=== PATIENT | female | born 1945 | race Caucasian/White ===

== ENCOUNTER 2016-04-10 09:07 | Outpatient (RCR) | payer MEDICAID ==
[~2016-04-10 09:07] MED LIST: ACYC400T21 PO; ALBU17AE23 IH; ALBU8.5H2 IH; ASP81CT PO; ATOR10TA PO; ATRV10T PO; BISA-65 PO; BISA5TAB8 PO; CEPH500C PO; DOCU-143 PO; DOCU100T7 PO; GABA-488 PO; GABA300C PO; HYDR-34 PO; HYDR1CAP2 PO; IBUP-792 PO; LISI20TA PO; LISI5TAB PO; LNS30CCR PO; MAGN400O7 PO; MELO7.5T PO; MORP15TA97 PO; MORP30CP12 PO; OMEP40CA36 PO; ONDA8TAB6 PO; POLI10TA; POLY119P PO; PSYL1PAC15 PO; [UNRECOGNIZED DRUG - CODE] PO
[2016-04-10 09:34] LABS: BASOPHILS % (AUTO) 1 % (0-10); EOSINOPHILS % (AUTO) 0 % (0-10); LYMPHOCYTES # (AUTO) 1.2 X 10^3 (1.0-4.0); LYMPHOCYTES % (AUTO) 35 % (12-44); MEAN CORPUSCULAR HEMOGLOBIN 22 PG (25-34); MEAN CORPUSCULAR HGB CONC 29 G/DL (32-36); MEAN CORPUSCULAR VOLUME 78 FL (80-99); MEAN PLATELET VOLUME 9.2 FL (7.4-10.4); MONOCYTES # (AUTO) 0.7 X 10^3 (0.0-1.0); MONOCYTES % (AUTO) 20 % (0-12); NEUTROPHILS # (AUTO) 1.6 X 10^3 (1.8-7.8); NEUTROPHILS % (AUTO) 44 % (42-75); PLATELET COUNT 161 10^3/uL (130-400); RED BLOOD COUNT 2.68 10^6/uL (4.35-5.85); RED CELL DISTRIBUTION WIDTH 22.6 % (10.0-14.5); WHITE BLOOD COUNT 3.6 10^3/uL (4.3-11.0)
[2016-04-10 10:05] LABS: ALANINE AMINOTRANSFERASE 7 U/L (0-55); ALBUMIN 3.3 G/DL (3.2-4.5); ANION GAP 9 MMOL/L (5-14); ASPARTATE AMINO TRANSFERASE 18 U/L (5-34); BILIRUBIN,TOTAL 0.2 MG/DL (0.1-1.0); BLOOD UREA NITROGEN 8 MG/DL (7-18); BUN/CREATININE RATIO 13; CALCIUM 8.5 MG/DL (8.5-10.1); CARBON DIOXIDE 23 MMOL/L (21-32); CHLORIDE 100 MMOL/L (98-107); CREATININE SERUM 0.64 MG/DL (0.60-1.30); GFR ESTIMATED > 60; GLUCOSE 103 MG/DL (70-105); POTASSIUM 4.2 MMOL/L (3.6-5.0); SODIUM 132 MMOL/L (135-145); TOTAL PROTEIN 6.1 G/DL (6.4-8.2)
== END 2016-05-09 | disposition home or self-care (01) ==
LOC: ONC 09:07
PROVIDERS: ATTEND Internal Medicine Hematology & Oncology
DX: C18.7 Malignant neoplasm of sigmoid colon (principal); C78.2 Secondary malignant neoplasm of pleura; C77.2 Secondary and unspecified malignant neoplasm of intra-abdominal lymph nodes; C78.6 Secondary malignant neoplasm of retroperitoneum and peritoneum; D69.59 Other secondary thrombocytopenia; F17.210 Nicotine dependence, cigarettes, uncomplicated; I73.9 Peripheral vascular disease, unspecified; L97.909 Non-pressure chronic ulcer of unspecified part of unspecified lower leg with unspecified severity; J44.9 Chronic obstructive pulmonary disease, unspecified; Z79.899 Other long term (current) drug therapy
CPT/HCPCS: 36591; 80053; 82378; 85025

== ENCOUNTER 2016-05-05 16:14 | Inpatient (IN) | payer MEDICAID ==
[~2016-05-05] VITALS: Ht 167.6 cm; Wt 49.4 kg
[2016-05-05] MEDS ORDERED: LORazepam INJ 2 MG/ML (ATIVAN) VIAL ONE (16:52)
--- NOTE | 2016-05-05 16:54 | ED General ---
General Chief Complaint: Fever-Adult/Adol Stated Complaint: SOA Nursing Triage Note: PT BROUGHT IN BY [facility] WITH C/O FEVER AND SOA. PT HAS STAGE 4 COLON CA. Nursing Sepsis Screen: Possible Sepsis Risk Source of Information: Patient, EMS Exam Limitations: Other (dementia) History of Present Illness Time Seen by Provider: 16:40 Initial Comments 70 year-old female patient presents to the emergency department via [facility] with complaints of fever and shortness of air. Patient has known stage IV colon cancer and sees Dr. Wetzel. No family or caregivers present with the patient. Patient unable to provide history. Timing/Duration: Other (chronic shortness of air, worsening over the last 1-2 days.) Modifying Factors: worse with Other (worse with activity) Allergies and Home Medications Allergies Coded Allergies: NKANo Known Allergies (Verified Allergy, Mild, 04/13/10) Home Medications Albuterol 8.5 Gm Hfa.aer.ad 2 PUFF IH Q4H PRN PRN SHORTNESS OF BREATH (Reported ) Atorvastatin Calcium 10 Mg Tablet #30 10 MG PO DAILY Prescribed by: LAURA JENKINS on 06/29/15 1112 Bisacodyl 5 Mg Tablet.dr 5 MG PO DAILY PRN PRN CONSTIPATION (Reported) Docusate Sodium 100 Mg Capsule 200 MG PO DAILY (Reported) TAKES 2 (100MG) CAPSULES Gabapentin 300 Mg Capsule 300 MG PO TID PRN PRN PAIN (Reported) Hydrocodone Bit/Acetaminophen 1 Ea Tablet 1.5 TAB PO Q4H PRN PRN PAIN (Reported ) Lisinopril 20 Mg Tablet 20 MG PO DAILY (Reported) Magnesium Hydroxide 400 Mg/5 Ml Oral.susp 30 ML PO DAILY PRN PRN CONSTIPATION ( Reported) Morphine Sulfate 30 Mg Cpmp.24hr 30 MG PO BID (Reported) Omeprazole 40 Mg Capsule.dr 40 MG PO DAILY (Reported) Ondansetron HCl 8 Mg Tablet 8 MG PO Q8H PRN PRN NAUSEA (Reported) Constitutional: see HPI fever malaise EENTM: no symptoms reported Respiratory: see HPI Gastrointestinal: No diarrhea, loss of appetiteNo vomiting Other Patient unable to provide ROS due to dementia. ROS per EMS. Past Xdpyjse-Mwnlcq-Ulbpzy Hx Patient Social History Alcohol Use: Denies Use Recreational Drug Use: No Smoking Status: Current Everyday Smoker Recent Foreign Travel: No Contact w/Someone Who Travel: No Recent Infectious Disease Expo: No Recent Hopitalizations: No Physical Abuse Screen: No Sexual Abuse: No Surgeries HX Surgeries: Yes (COLONOSCOPY, COLON RESECTION, KYPHOPLASTY) Surgeries: Abdominal, Orthopedic Respiratory Hx Respiratory Disorders: Yes (colon cancer with mets to the lungs.) Respiratory Disorders: COPD Cardiovascular Hx Cardiac Disorders: Yes Cardiac Disorders: Hypertension Neurological Hx Neurological Disorders: Yes Neurological Disorders: Dementia Reproductive System Hx Reproductive Disorders: No Genitourinary Hx Genitourinary Disorders: No Genitourinary Disorders: Bladder Infection Gastrointestinal Hx Gastrointestinal Disorders: No Gastrointestinal Disorders: Gastroesophageal Reflux, Chronic Constipation Musculoskeletal Hx Musculoskeletal Disorders: Yes (COMPRESSION FX'S--S/P KYPHOPLASTY) Musculoskeletal Disorders: Arthritis, Chronic Back Pain, Fractures Endocrine Hx Endocrine Disorders: No HEENT HX ENT Disorders: No Cancer Hx Cancer: Yes (COLON CA/LUNG METS-STATES CURRENTLY RECEIVING CHEMOTHERAPY) Cancer: Colon Psychosocial Hx Psychiatric Problems: Yes Behavioral Health Disorders: Anxiety, Depression Integumentary HX Skin/Integumentary Disorder: No Blood Transfusions Hx Blood Disorders: Yes (ANEMIA) Reviewed Nursing Assessment Reviewed/Agree w Nursing PMH: Yes Family Medical History Significant Family History: No Pertinent Family Hx Physical Exam-Suspected Sepsis Physical Exam Vital Signs Vital Sign - Last 12Hours 05/05/16 05/05/16 16:25 16:35 Temp 100.4 Pulse 111 Resp 30 B/P 106/72 Pulse Ox 100 O2 Delivery Nasal Cannula O2 Flow Rate 3 Capillary Refill : Less Than 3 Seconds Blood Pressure Mean: 83 General Appearance: Anxious Chronically ill Mild Distress HEENT: PERRL/EOMI Pharynx Normal Neck: Normal Inspection Non Tender Respiratory: Crackles Decreased Breath Sounds Expiration Respiratory Distress Rhonci Cardiovascular: No Murmur Tachycardia Gastrointestinal: Normal Bowel Sounds Non Tender SoftNo Distended Extremity: Non Tender Pedal Edema (1+ pedal edema.) Other (pressure ulcers of the rt dorsum foot with eschar. no evidence of erythema. slight serous drainage.) Neurologic/Psychiatric: Alert Disoriented x3 Other (anxious and agitated. ) Skin: normal color warm/dry ulcerations (pressure ulcers of the rt dorsum foot with eschar. no evidence of erythema. slight serous drainage.) Progress/Results/Core Measures Suspected Sepsis Recent Fever Within 48 Hours: Yes Infection Criteria Present: Suspected New Infection New/Unexplained Altered Menta: No Sepsis Screen: Possible Sepsis Risk Sepsis Diagnosis: SIRS Temperature:100.4 Pulse: 111 Respiratory Rate: 30 Laboratory Tests 05/05/16 16:25: White Blood Count 10.9 Blood Pressure 106 /72 Mean: 83 Laboratory Tests 05/05/16 16:25: Creatinine 0.64, INR Comment 1.0, Platelet Count 163, Total Bilirubin 0.6 Results/Orders Lab Results Laboratory Tests Test 05/05/16 16:25 Range/Units Activated Partial Thromboplast Time 35 24-35 SEC Alanine Aminotransferase (ALT/SGPT) 15 0-55 U/L Albumin 3.4 3.2-4.5 G/DL Alkaline Phosphatase 85 40-136 U/L Anion Gap 11 5-14 MMOL/L Aspartate Amino Transf (AST/SGOT) 28 5-34 U/L BUN/Creatinine Ratio 14 Basophils # (Auto) 0.0 0.0-0.1 10^3/uL Basophils (%) (Auto) 0 0-10 % Blood Urea Nitrogen 9 7-18 MG/DL Calcium Level 8.6 8.5-10.1 MG/DL Carbon Dioxide Level 21 21-32 MMOL/L Chloride Level 98 98-107 MMOL/L Creatinine 0.64 0.60-1.30 MG/DL Eosinophils # (Auto) 0.0 0.0-0.3 10^3/uL Eosinophils (%) (Auto) 0 0-10 % Estimat Glomerular Filtration Rate > 60 Glucose Level 98 70-105 MG/DL Hematocrit 21 L 35-52 % Hemoglobin 5.9 *L 11.5-16.0 G/DL INR Comment 1.0 0.8-1.4 Lactic Acid Level 1.6 0.5-2.0 MMOL/L Lymphocytes # (Auto) 0.5 L 1.0-4.0 X 10^3 Lymphocytes (%) (Auto) 5 L 12-44 % Mean Corpuscular Hemoglobin 22 L 25-34 PG Mean Corpuscular Hemoglobin Concent 29 L 32-36 G/DL Mean Corpuscular Volume 76 L 80-99 FL Mean Platelet Volume 9.5 7.4-10.4 FL Monocytes # (Auto) 1.0 0.0-1.0 X 10^3 Monocytes (%) (Auto) 9 0-12 % Neutrophils # (Auto) 9.4 H 1.8-7.8 X 10^3 Neutrophils (%) (Auto) 86 H 42-75 % Platelet Count 163 130-400 10^3/uL Potassium Level 5.0 3.6-5.0 MMOL/L Prothrombin Time 13.2 12.2-14.7 SEC Red Blood Count 2.70 L 4.35-5.85 10^6/uL Red Cell Distribution Width 21.7 H 10.0-14.5 % Sodium Level 130 L 135-145 MMOL/L Total Bilirubin 0.6 0.1-1.0 MG/DL Total Protein 6.4 6.4-8.2 G/DL Troponin I < 0.30 <0.30 NG/ML White Blood Count 10.9 4.3-11.0 10^3/uL My Orders Orders-[facility] Cbc With Automated Diff (05/05/16 16:51) Comprehensive Metabolic Panel (05/05/16 16:51) Lactic Acid Analyzer (05/05/16 16:51) Blood Culture (05/05/16 16:51) Sputum Culture (05/05/16 16:51) Ua Culture If Indicated (05/05/16 16:51) Protime With Inr (05/05/16 16:51) Partial Thromboplastin Time (05/05/16 16:51) Chest 1 View, Ap/Pa Only (05/05/16 16:51) O2 (05/05/16 16:51) Acetaminophen Tablet (Tylenol Tablet) (05/05/16 17:00) Saline Lock/Iv-Start (05/05/16 16:51) Ekg Tracing (05/05/16 16:51) Troponin I (05/05/16 16:51) Ns Iv 1000 Ml (Sodium Chloride 0.9%) (05/05/16 17:00) Levofloxacin 750 Mg/150 Ml Iv (Levaquin (05/05/16 17:00) Vital Signs Adult Sepsis Patie Q1HR (05/05/16 16:51) Lorazepam Injection (Ativan Injection) (05/05/16 16:52) Albuterol/Ipra Inhalation Soln (Duoneb I (05/05/16 17:45) Svn Sm Volume Nebulizer Rt-Rfs (05/05/16 17:42) Albuterol/Ipra Inhalation Soln (Duoneb I (05/05/16 18:15) Svn Sm Volume Nebulizer Rt-Rfs (05/05/16 18:09) Ns Iv 1000 Ml (Sodium Chloride 0.9%) (05/05/16 19:28) Wound Culture (05/05/16 20:00) Medications Given in ED Current Medications Medications Dose Ordered Sig/Alexandre Route Start Time Stop Time Status Last Admin Dose Admin Albuterol/ Ipratropium 3 ml ONCE ONCE INH 05/05/16 17:45 05/05/16 17:46 DC 05/05/16 17:59 3 ML Albuterol/ Ipratropium 3 ml ONCE ONCE INH 05/05/16 18:15 05/05/16 18:16 DC 05/05/16 18:10 3 ML Levofloxacin/ Dextrose 750 mg ONCE ONCE IV 05/05/16 17:00 05/05/16 17:01 DC 05/05/16 18:19 750 MG Lorazepam 2 mg STK-MED ONCE .ROUTE 05/05/16 16:52 05/05/16 16:59 DC 05/05/16 17:10 1 MG Sodium Chloride 1,500 ml @ 750 mls/hr PRN PRN IV 05/05/16 17:00 05/05/16 17:10 750 MLS/HR Vital Signs/I&O Vital Sign - Last 12Hours 05/05/16 05/05/16 05/05/16 05/05/16 16:25 16:35 18:00 18:10 Temp 100.4 Pulse 111 Resp 30 B/P 106/72 Pulse Ox 100 96 100 100 O2 Delivery Nasal Cannula Nasal Cannula Nasal Cannula Nasal Cannula O2 Flow Rate 3 3 3 3 05/05/16 05/05/16 05/05/16 05/05/16 19:35 21:10 22:26 23:43 Temp 100.9 Pulse 125 Resp 35 Pulse Ox 100 100 98 O2 Delivery Nasal Cannula Nasal Cannula Nasal Cannula O2 Flow Rate 3 4.00 3.00 Intake and Output 05/06/16 00:00 Intake Total 1000 ml Balance 1000 ml Capillary Refill : Less Than 3 Seconds Blood Pressure Mean: 83 ECG Initial ECG Impression Date: May 05, 2016 Initial ECG Impression Time: 17:16 Initial ECG Rate: 127 Initial ECG Rhythm: S.Tach Initial ECG Comparisson: Unchanged Comment Sinus tachycardia. No changes from previous ECG. ECG reviewed by Dr. Nascimento. Diagnostic Imaging Diagonstic Imaging: Xray Plain Films/CT/US/NM/MRI: chest Comments FINDINGS: Heart size is within normal limits and stable when compared to . The previous exam did note nodular densities in the left lung base and in the right perihilar region. These are felt to be secondary to metastatic disease related to the patient's diagnosis of colon carcinoma. The CT chest exam performed on 07/07/15 also confirmed there were neoplastic masses in this regions. On this exam, the nodular density in the left lung base does seem somewhat more conspicuous. The density about the right hilum is not well visualized but the right hilum, itself, seems more prominent than on the prior exam and I suspect that there is neoplastic involvement of the right hilum. The other pulmonary nodules seen on the CT chest exam are not well appreciated on this study. The central pulmonary vascularity is somewhat prominent but there is no sign of overt failure. There is no evidence for pneumonia either. The mediastinum is not widened. The osseous structures are intact. The left-sided Port-A-Cath, seen previously, is again evident and no different. IMPRESSION: 1. There is no acute cardiopulmonary abnormality identified. 2. The suspected metastatic lesions involving the left lung base are more prominent on this study. The right hilum also appears to have increased in size somewhat and this area may also be involved by neoplasm. If further study is desired, then repeat CT chest exam would be recommended. Dictated by: Dictated on workstation # [id number] Reviewed: Reviewed by Me (radiology report reviewed by me) Departure Communication Time/Spoke to Admitting Phy: 19:40 Communication Patient case discussed with Dr. Alexis, he accepts patient to his internal medicine service for IV antibiotics and further evaluation. Progress Notes Daughter arrives to the emergency department. Reports patient has chronic shortness of air with worsening symptoms of the last several days. Was seen earlier this week by Soo Chambers APRN with plans made for possible transfusion due to chronic anemia. Reports patient has chronic dementia, but increased hallucinations over the last several days. Daughter reports morphine was increased to 100 mg from 90 mg. Daughter is concerned this has caused increased confusion. Daughter also reports Soo discussed need for hospice, but states patient refused hospice at the time of discussion. All laboratory findings, diagnostic study findings, and plan for admission discussed with the patient's daughter. Daughter voices understanding and agrees with the treatment plan. Patient does show improved breath sounds bilaterally with continued rhonchi and crackles. Patient case discussed with Dr. Nascimento, he agrees with the plan of care. Impression Impression: Primary Impression: Sepsis Qualified Code: A41.9 - Sepsis, unspecified organism Additional Impressions: Colon carcinoma metastatic to lung Anemia Disposition: ADMITTED INPATIENT Condition: Stable Decision to Admit Reason: Admit from ER (General) Decision to Admit/Date: May 05, 2016 Time/Decision to Admit Time: 19:20 Departure-Patient Inst. Referrals: SOURAV ALEXIS MD (PCP/Family) Primary Care Physician [facility] May 05, 2016 16:54
[2016-05-05 17:00] LABS: BASOPHILS % (AUTO) 0 % (0-10); EOSINOPHILS % (AUTO) 0 % (0-10); LYMPHOCYTES # (AUTO) 0.5 X 10^3 (1.0-4.0); LYMPHOCYTES % (AUTO) 5 % (12-44); MEAN CORPUSCULAR HEMOGLOBIN 22 PG (25-34); MEAN CORPUSCULAR HGB CONC 29 G/DL (32-36); MEAN CORPUSCULAR VOLUME 76 FL (80-99); MEAN PLATELET VOLUME 9.5 FL (7.4-10.4); MONOCYTES % (AUTO) 9 % (0-12); NEUTROPHILS # (AUTO) 9.4 X 10^3 (1.8-7.8); NEUTROPHILS % (AUTO) 86 % (42-75); PLATELET COUNT 163 10^3/uL (130-400); RED CELL DISTRIBUTION WIDTH 21.7 % (10.0-14.5); WHITE BLOOD COUNT 10.9 10^3/uL (4.3-11.0)
[2016-05-05] MEDS ORDERED: LEVOFLOXACIN IV 750 MG/150 ML (LEVAQUIN) BAG IV ONE (17:00)
[2016-05-05] MEDS ORDERED: ACETAMINOPHEN 500 MG TAB (TYLENOL) PO PRN (17:00)
[2016-05-05] MEDS ORDERED: NS IV 1000 ML 1,500 ML IV PRN (17:00)
[2016-05-05 17:03] LABS: PROTHROMBIN TIME PATIENT 13.2 SEC (12.2-14.7)
[2016-05-05 17:13] LABS: ALANINE AMINOTRANSFERASE 15 U/L (0-55); ALBUMIN 3.4 G/DL (3.2-4.5); ANION GAP 11 MMOL/L (5-14); ASPARTATE AMINO TRANSFERASE 28 U/L (5-34); BILIRUBIN,TOTAL 0.6 MG/DL (0.1-1.0); BLOOD UREA NITROGEN 9 MG/DL (7-18); BUN/CREATININE RATIO 14; CALCIUM 8.6 MG/DL (8.5-10.1); CARBON DIOXIDE 21 MMOL/L (21-32); CHLORIDE 98 MMOL/L (98-107); CREATININE SERUM 0.64 MG/DL (0.60-1.30); GFR ESTIMATED > 60; GLUCOSE 98 MG/DL (70-105); SODIUM 130 MMOL/L (135-145); TOTAL PROTEIN 6.4 G/DL (6.4-8.2)
[2016-05-05 17:19] LABS: TROPONIN I < 0.30 NG/ML (<0.30)
[2016-05-05] MEDS ORDERED: RT-ALBUTEROL/IPRATROPIUM 3 ML (DUONEB) VIAL INH ONE ×2 (17:45→18:15)
--- NOTE | 2016-05-05 18:04 | Diagnostic Imaging Report ---
INDICATION: Colon cancer. EXAMINATION: Portable erect AP chest at 5:18 p.m. FINDINGS: Heart size is within normal limits and stable when compared to 06/29/15. The previous exam did note nodular densities in the left lung base and in the right perihilar region. These are felt to be secondary to metastatic disease related to the patient's diagnosis of colon carcinoma. The CT chest exam performed on 07/07/15 also confirmed there were neoplastic masses in this regions. On this exam, the nodular density in the left lung base does seem somewhat more conspicuous. The density about the right hilum is not well visualized but the right hilum, itself, seems more prominent than on the prior exam and I suspect that there is neoplastic involvement of the right hilum. The other pulmonary nodules seen on the CT chest exam are not well appreciated on this study. The central pulmonary vascularity is somewhat prominent but there is no sign of overt failure. There is no evidence for pneumonia either. The mediastinum is not widened. The osseous structures are intact. The left-sided Port-A-Cath, seen previously, is again evident and no different. IMPRESSION: 1. There is no acute cardiopulmonary abnormality identified. 2. The suspected metastatic lesions involving the left lung base are more prominent on this study. The right hilum also appears to have increased in size somewhat and this area may also be involved by neoplasm. If further study is desired, then repeat CT chest exam would be recommended. Dictated by: Dictated on workstation # [id number]
[2016-05-05] MEDS ORDERED: NS IV 1000 ML 1,000 ML IV ONE (19:28)
[2016-05-05 19:50] VITALS: BP 70/40
[2016-05-05] MEDS ORDERED: morphine INJ 4 MG/ML 1 ML (VIAL/SYRINGE) IV PRN (20:15)
[2016-05-05] MEDS ORDERED: ONDANSETRON 4 MG/2 ML (SDV) Z0FRAN IV PRN (20:15)
[2016-05-05] MEDS ORDERED: cefTRIAXone 1 GM/NS 50 ML IVPB IV SCH ×2 (20:15)
[2016-05-05] MEDS ORDERED: ACETAMINOPHEN 650 MG SUPP (TYLENOL) PR PRN (20:15)
[2016-05-05] MEDS ORDERED: morphine INJ 4 MG/ML 1 ML (VIAL/SYRINGE) IVP PRN (20:30)
[2016-05-05] MEDS ORDERED: ACETAMINOPHEN 325 MG SUPP (TYLENOL) PR PRN (20:30)
[2016-05-05] MEDS: SCOPOLAMINE 1.5 MG (TRANSDERM-SCOP) PATCH TOP SCH (20:49)
[2016-05-05] MEDS: NS IV 1000 ML 1,000 ML IV SCH (20:49)
[2016-05-05] MEDS ORDERED: morphine INJ 5 MG/ML 1 ML VIAL IVP ONE (21:00)
[2016-05-05] MEDS ORDERED: morphine INJ 10 MG/ML 1ML (SYR OR VIAL) ONE (21:24)
[2016-05-05] MEDS ORDERED: RT-ALBUTEROL/IPRATROPIUM 3 ML (DUONEB) VIAL INH PRN (21:45)
[2016-05-05] MEDS: RT-ALBUTEROL/IPRATROPIUM 3 ML (DUONEB) VIAL INH SCH (22:25)
[2016-05-05] MEDS: LORazepam INJ 2 MG/ML (ATIVAN) VIAL IV PRN (23:14)
[2016-05-06] VITALS: BP 92/55
[2016-05-06] MEDS: RT-ALBUTEROL/IPRATROPIUM 3 ML (DUONEB) VIAL INH SCH ×4 (02:26→14:00)
[2016-05-06] MEDS: morphine INJ 4 MG/ML 1 ML (VIAL/SYRINGE) IVP PRN ×4 (02:30→13:47)
[2016-05-06 04:00] VITALS: BP 94/62
[2016-05-06] MEDS: LORazepam INJ 2 MG/ML (ATIVAN) VIAL IV PRN (05:31)
[2016-05-06] MEDS: NS IV 1000 ML 1,000 ML IV SCH ×2 (06:15→08:10)
[2016-05-06 06:29] LABS: BASOPHILS % (AUTO) 0 % (0-10); EOSINOPHILS % (AUTO) 0 % (0-10); LYMPHOCYTES # (AUTO) 0.6 X 10^3 (1.0-4.0); LYMPHOCYTES % (AUTO) 11 % (12-44); MEAN CORPUSCULAR HEMOGLOBIN 22 PG (25-34); MEAN CORPUSCULAR HGB CONC 28 G/DL (32-36); MEAN CORPUSCULAR VOLUME 77 FL (80-99); MEAN PLATELET VOLUME 9.2 FL (7.4-10.4); MONOCYTES # (AUTO) 0.9 X 10^3 (0.0-1.0); MONOCYTES % (AUTO) 17 % (0-12); NEUTROPHILS # (AUTO) 3.8 X 10^3 (1.8-7.8); NEUTROPHILS % (AUTO) 72 % (42-75); PLATELET COUNT 129 10^3/uL (130-400); RED BLOOD COUNT 2.23 10^6/uL (4.35-5.85); RED CELL DISTRIBUTION WIDTH 21.2 % (10.0-14.5); WHITE BLOOD COUNT 5.2 10^3/uL (4.3-11.0)
[2016-05-06 06:48] LABS: ALANINE AMINOTRANSFERASE 18 U/L (0-55); ALBUMIN 2.9 G/DL (3.2-4.5); ANION GAP 10 MMOL/L (5-14); ASPARTATE AMINO TRANSFERASE 59 U/L (5-34); BILIRUBIN,TOTAL 0.3 MG/DL (0.1-1.0); BLOOD UREA NITROGEN 8 MG/DL (7-18); BUN/CREATININE RATIO 14; CALCIUM 8.2 MG/DL (8.5-10.1); CARBON DIOXIDE 19 MMOL/L (21-32); CHLORIDE 103 MMOL/L (98-107); CREATININE SERUM 0.57 MG/DL (0.60-1.30); GFR ESTIMATED > 60; GLUCOSE 97 MG/DL (70-105); SODIUM 132 MMOL/L (135-145); TOTAL PROTEIN 5.7 G/DL (6.4-8.2)
[2016-05-06] MEDS ORDERED: FLU TRIvalent (5 YOA+) 2016-17 (AFLURIA) 0.5 ML IM ONE (07:15)
--- NOTE | 2016-05-06 14:39 | History & Physical-Hospitalist ---
HPI History of Present Illness: HPI/Chief Complaint The patient is a 70-year-old white female known to me for some years as her primary care provider. She was discovered to have a rectal cancer in October 2009 with a lung nodule at the time of discovery. She has undergone chemotherapy through these years. She has been a heavy smoker and has been disabled by lung disease but all in all performed rather remarkably. She presented to the emergency room on 05/05 with complaints of fever and shortness of breath. She was in a very obvious debilitated circumstance. Her hemoglobin was noted to be 5.9. In checking old laboratory he was found to be 6.0 on 04/10. She complained of rather considerable pain. She had not done anything prior with regard to hospice or comfort care. Not long after her admission a daughter who appeared and confirmed that she was not to be resuscitated and that comfort care seemed to be the way to approach this. Source: patient, family, RN/MD, old records Exam Limitations: no limitations Date Seen 05/06/16 Attending Physician Socrates Alexis MD PCP Socrates Alexis MD Referring Physician Date of Admission May 05, 2016 at 19:10 Home Medications & Allergies Home Medications Reviewed patient Home Medication Reconciliation Form Allergies Coded Allergies: NKANo Known Allergies (Verified Allergy, Mild, 04/13/10) Past Tqohoec-Ojvbqb-Awgpwo Hx Patient Social History Alcohol Use: Denies Use Recreational Drug Use: No Smoking Status: Current Everyday Smoker Physical Abuse Screen: No Sexual Abuse: No Recent Foreign Travel: No Contact w/other who traveled: No Recent Hopitalizations: No Recent Infectious Disease Expo: No Seasonal Allergies Seasonal Allergies: No Surgeries HX Surgeries: Yes (COLONOSCOPY, COLON RESECTION, KYPHOPLASTY) Surgeries: Abdominal, Orthopedic Respiratory Hx Respiratory Disorders: Yes (colon cancer with mets to the lungs.) Cardiovascular Hx Cardiovascular Disorders: Yes Cardiac Disorders: Hypertension Neurological Hx Neurological Disorders: Yes Neurological Disorders: Dementia Reproductive System Hx Reproductive Disorders: No Genitourinary Hx Genitourinary Disorders: No Genitourinary Disorders: Bladder Infection Gastrointestinal Hx Gastrointestinal Disorders: No Gastrointestinal Disorders: Gastroesophageal Reflux, Chronic Constipation Musculoskeletal Hx Musculoskeletal Disorders: Yes (COMPRESSION FX'S--S/P KYPHOPLASTY) Musculoskeletal Disorders: Arthritis, Chronic Back Pain, Fractures Endocrine Hx Endocrine Disorders: No HEENT HX ENT Disorders: No Cancer Hx Cancer: Yes (COLON CA/LUNG METS-STATES CURRENTLY RECEIVING CHEMOTHERAPY) Cancer: Colon Psychosocial Hx Psychiatric Problems: Yes Behavioral Health Disorders: Anxiety, Depression Integumentary HX Skin/Integumentary Disorder: No Blood Transfusions Hx Blood Disorders: Yes (ANEMIA) Reviewed Nursing Assessment Reviewed/Agree w Nursing PMH: Yes Family Medical History Significant Family History: No Pertinent Family Hx Review of Systems Constitutional: see HPI fever malaise weakness weight loss EENTM: no symptoms reported Respiratory: cough short of breath Cardiovascular: no symptoms reported Gastrointestinal: abdominal pain loss of appetite nausea Genitourinary: incontinence Musculoskeletal: muscle weakness Skin: no symptoms reported Psychiatric/Neurological: Depressed Physical Exam Physical Exam Vital Signs Vital Sign - Last 12Hours 05/05/16 05/05/16 16:25 16:35 Temp 100.4 Pulse 111 Resp 30 B/P 106/72 Pulse Ox 100 O2 Delivery Nasal Cannula O2 Flow Rate 3 Capillary Refill : Less Than 3 SecondsLess Than 3 Seconds General Appearance: Other (although always small she has now obviously cachectic) HEENT: Normal ENT Inspection Neck: Normal Inspection Cardiovascular: Systolic Murmur (grade 2 left sternal border and apex) Gastrointestinal: Other (scaphoid) Neurologic/Psychiatric: Other (somnolent) Results Results/Procedures Lab Laboratory Tests 05/05/16 16:25 05/06/16 06:20 Assessment/Plan Admission Diagnosis End-stage rectal cancer with metastases (DX 7 of 10) 2.COPD Assessment and Plan Plan: Comfort care is abundantly clear as best option. Accordingly she will not be transfused, IV fluids will be reduced to minimum and treatment will be focused on pain relief. Clinical Quality Measures DVT/VTE Risk/Contraindication: Risk Factor Score Per Nursin RFS Level Per Nursing on Admit: 4+=Very High SOCRATES ALEXIS MD May 06, 2016 14:39
[2016-05-06] MEDS: morphine PCA 30 MG/30 ML VIAL IV PRN ×2 (15:00→21:22)
[2016-05-07] MEDS: NS IV 1000 ML 1,000 ML IV SCH (01:33)
[2016-05-07] MEDS: morphine PCA 30 MG/30 ML VIAL IV PRN ×4 (03:54→22:27)
[2016-05-07] MEDS ORDERED: CATHETER FLUSH 10 ML SYR IV PRN (08:45)
[2016-05-07] MEDS: LORazepam INJ 2 MG/ML (ATIVAN) VIAL IVP PRN ×2 (10:10→14:10)
--- NOTE | 2016-05-07 10:26 | Progress Note-Hospitalist ---
Progress Note HPI/CC on Admission The patient is a 70-year-old white female known to me for some years as her primary care provider. She was discovered to have a rectal cancer in October 2009 with a lung nodule at the time of discovery. She has undergone chemotherapy through these years. She has been a heavy smoker and has been disabled by lung disease but all in all performed rather remarkably. She presented to the emergency room on 05/05 with complaints of fever and shortness of breath. She was in a very obvious debilitated circumstance. Her hemoglobin was noted to be 5.9. In checking old laboratory he was found to be 6.0 on 04/10. She complained of rather considerable pain. She had not done anything prior with regard to hospice or comfort care. Not long after her admission a daughter who appeared and confirmed that she was not to be resuscitated and that comfort care seemed to be the way to approach this. Progress Notes/Assess & Plan Date Seen 05/07/16 Diagonsis/Assessment & Plan Chart Review: Hgb: 4 supervisor fabrication: Kojo was DC'd. Dr. Osorio reorders. Pt has colon CA with mets. Patient Interview: Physical exam was stable. Pt was very disoriented during visit. vitals stable but low BP noted In pain, disoriented CTAB but decreased in bases Assessment: Colon cancer with widespread metastasis in end-stage of life Severe anemia hemoglobin of 4 Plan: Kojo of 1 q4 SS consult Hospice consult comfort care Scribed by Marko Severino under the direct supervision of Dr. Osorio. DUC OSORIO DO May 07, 2016 10:26
[2016-05-08] MEDS: LORazepam INJ 2 MG/ML (ATIVAN) VIAL IVP PRN (05:30)
[2016-05-08] MEDS: NS IV 1000 ML 1,000 ML IV SCH (09:26)
[2016-05-08] MEDS: morphine PCA 30 MG/30 ML VIAL IV PRN ×2 (09:28→16:18)
--- NOTE | 2016-05-08 10:03 | Progress Note-Hospitalist ---
Progress Note HPI/CC on Admission The patient is a 70-year-old white female known to me for some years as her primary care provider. She was discovered to have a rectal cancer in October 2009 with a lung nodule at the time of discovery. She has undergone chemotherapy through these years. She has been a heavy smoker and has been disabled by lung disease but all in all performed rather remarkably. She presented to the emergency room on 05/05 with complaints of fever and shortness of breath. She was in a very obvious debilitated circumstance. Her hemoglobin was noted to be 5.9. In checking old laboratory he was found to be 6.0 on 04/10. She complained of rather considerable pain. She had not done anything prior with regard to hospice or comfort care. Not long after her admission a daughter who appeared and confirmed that she was not to be resuscitated and that comfort care seemed to be the way to approach this. Progress Notes/Assess & Plan Date Seen 05/08/16 Diagonsis/Assessment & Plan Hospice Review: Pt's family have not responded to hospital contact attempts. Pt will not be able to qualify for in-patient hospice without family consent. Patient Interview: Pt was unresponsive during visit. Physical exam was stable. vitals stable but low BP noted In pain, disoriented CTAB but decreased in bases Assessment: Colon cancer with widespread metastasis in end-stage of life Severe anemia hemoglobin of 4 Plan: Maintain pt in hospital during end-of- life transition due to pt's family not responding to requests for hospice. Scribed by Marko Severino under the direct supervision of Dr. Osorio. DUC OSORIO DO May 08, 2016 10:03
[2016-05-08] MEDS: SCOPOLAMINE 1.5 MG (TRANSDERM-SCOP) PATCH TOP SCH (20:24)
[2016-05-09] MEDS: morphine PCA 30 MG/30 ML VIAL IV PRN ×2 (01:34→09:57)
[2016-05-09] MEDS: LORazepam INJ 2 MG/ML (ATIVAN) VIAL IVP PRN (02:03)
--- NOTE | 2016-05-09 13:24 | Discharge Summary-Hospitalist ---
Diagnosis/Chief Complaint Date of Admission May 05, 2016 at 19:10 Date of Discharge Admission Diagnosis End-stage rectal cancer with metastases (DX 7 of 10) 2.COPD Discharge Diagnosis 1. End-stage rectal cancer with metastases (DX 7 of 10) 2.COPD Hospice Review: Pt's family have not responded to hospital contact attempts. Pt will not be able to qualify for in-patient hospice without family consent. Patient Interview: Pt was unresponsive during visit. Physical exam was stable. vitals stable but low BP noted In pain, disoriented CTAB but decreased in bases Assessment: Colon cancer with widespread metastasis in end-stage of life Severe anemia hemoglobin of 4 Plan: Maintain pt in hospital during end-of- life transition due to pt's family not responding to requests for hospice. Scribed by Marko Severino under the direct supervision of Dr. Osorio. Reason Hospital Visit/Course The patient is a 70-year-old white female known to me for some years as her primary care provider. She was discovered to have a rectal cancer in October 2009 with a lung nodule at the time of discovery. She has undergone chemotherapy through these years. She has been a heavy smoker and has been disabled by lung disease but all in all performed rather remarkably. She presented to the emergency room on 05/05 with complaints of fever and shortness of breath. She was in a very obvious debilitated circumstance. Her hemoglobin was noted to be 5.9. In checking old laboratory he was found to be 6.0 on 04/10. She complained of rather considerable pain. She had not done anything prior with regard to hospice or comfort care. Not long after her admission a daughter who appeared and confirmed that she was not to be resuscitated and that comfort care seemed to be the way to approach this. Hospital course: Patient had a lengthy end of life hospital course due to severe anemia from colon cancer with widespread metastasis. She is placed on comfort care and contacted family but unavailable after multiple attempts by social director so she was kept comfortable on comfort care and she passed peacefully on 05/09/16. Discharge Summary Discharge Physical Examination Allergies: Coded Allergies: NKANo Known Allergies (Verified Allergy, Mild, 04/13/10) Vitals & I&Os Vital Signs Date Time Temp Pulse Resp B/P Pulse Ox O2 Delivery O2 Flow Rate FiO2 05/09/16 09:57 20 05/09/16 09:00 Nasal Cannula 3.00 1/8/17 06:47 98 05/06/16 04:00 99.1 106 94/62 Hospital Course Labs (last 24 hrs) Microbiology 05/05/16 Blood Culture - Preliminary, Resulted No growth 05/05/16 Gram Stain - Final, Complete 05/05/16 Wound Culture - Final, Complete Staphylococcus Aureus Strep, Beta Hemolytic Group G Discharge Home Medications: Active Scripts Active Lipitor (Atorvastatin Calcium) 10 Mg Tablet 10 Mg PO DAILY Reported Zofran (Ondansetron HCl) 8 Mg Tablet 8 Mg PO Q8H PRN Milk of Magnesia (Magnesium Hydroxide) 400 Mg/5 Ml Oral.susp 30 Ml PO DAILY PRN Dulcolax (Bisacodyl) 5 Mg Tablet.dr 5 Mg PO DAILY PRN Colace (Docusate Sodium) 100 Mg Capsule 200 Mg PO DAILY TAKES 2 (100MG) CAPSULES Proair Hfa (Albuterol) 8.5 Gm Hfa.aer.ad 2 Puff IH Q4H PRN Gabapentin 300 Mg Capsule 300 Mg PO TID PRN Prinivil (Lisinopril) 20 Mg Tablet 20 Mg PO DAILY Morphine Sulfate ER (Morphine Sulfate) 30 Mg Cpmp.24hr 30 Mg PO BID Omeprazole 40 Mg Capsule.dr 40 Mg PO DAILY Vicodin Es 7.5 Mg/325 Mg (Acetaminophen/Hydrocodone Bitart) 1 Ea Tablet 1.5 Tab PO Q4H PRN Instructions to patient/family Please see electonic discharge instructions given to patient. Clinical Quality Measures DVT/VTE Risk/Contraindication: Risk Factor Score Per Nursin RFS Level Per Nursing on Admit: 4+=Very High DUC OSORIO DO May 09, 2016 13:24
== END 2016-05-09 18:27 | disposition expired | DRG 872 ==
LOC: EDUNIT# 16:14 → ER 16:16 → 4TH 19:10
PROVIDERS: ADMIT Internal Medicine; ATTEND Internal Medicine
DX: A41.9 Sepsis, unspecified organism (principal); C18.7 Malignant neoplasm of sigmoid colon; C78.01 Secondary malignant neoplasm of right lung; C78.02 Secondary malignant neoplasm of left lung; Z66 Do not resuscitate; Z51.5 Encounter for palliative care; D64.9 Anemia, unspecified; F17.210 Nicotine dependence, cigarettes, uncomplicated; J44.9 Chronic obstructive pulmonary disease, unspecified; I10 Essential (primary) hypertension; F03.90 Unspecified dementia, unspecified severity, without behavioral disturbance, psychotic disturbance, mood disturbance, and anxiety; K21.9 Gastro-esophageal reflux disease without esophagitis; K59.09 Other constipation; L89.899 Pressure ulcer of other site, unspecified stage
CPT/HCPCS: 36415; 71010; 80053; 83605; 84484; 85025; 85610; 85730; 87040; 87070; 87077; 87186; 87205; 93005; 94640; 94760; 96361; 96365; 96375